=== PATIENT | female | born 1980 | race Caucasian/White ===

== ENCOUNTER → 2021-07-16 | Outpatient (CLI) | payer BC, OTHER ==
[2021-07-16 10:20] LABS: INR 0.94 (0.85-1.15); PROTHROMBIN TIME 10.3 SEC (9.6-11.6)
== END | disposition home or self-care (01) ==
LOC: RAH 08:56
PROVIDERS: ATTEND Internal Medicine
DX: E04.1 Nontoxic single thyroid nodule (principal); Z79.01 Long term (current) use of anticoagulants
CPT/HCPCS: 10005; 36415; 60100; 76942; 85610; 85730